=== PATIENT | male | born 1985 | race Caucasian/White ===

== ENCOUNTER 2016-12-17 | Emergency (ER) | payer OTHER | END 2016-12-17 15:27 | disposition home or self-care (01) ==

== ENCOUNTER 2017-01-26 20:27 | Emergency (ER) | payer OTHER | END 2017-01-26 21:33 | disposition home or self-care (01) | DX: R07.89 Other chest pain (principal); F41.9 Anxiety disorder, unspecified; R03.0 Elevated blood-pressure reading, without diagnosis of hypertension ==

== ENCOUNTER 2017-07-27 13:58 | Emergency (ER) | payer OTHER ==
[2017-07-27 14:49] LABS: BILIRUBIN,URINE NEGATIVE (NEGATIVE)
[2017-07-27 14:50] LABS: UA CHARGE (STRIP ONLY) YES; UR CULTURE IF IND NOT INDICATED
--- NOTE | 2017-07-27 15:00 | ED Physician Documentation ---
PD HPI MALE - Stated complaint Stated Complaint: LOWER BACK/MALE - Chief complaint Chief Complaint: Abd Pain - History obtained from History obtained from: Patient - History of Present Illness Timing - onset: Other (For the last week He has had intermittent pain, both testicles but usually the right, it is not severe. He is also had some left low and mid back pain but does get worse with motion and today he had some dysuria, there is no hematuria. He has never had a kidney stone. He is in a monogamous relationship with his and there is no concern for STD on his part.) Review of Systems Constitutional: reports: Reviewed and negative Cardiac: reports: Reviewed and negative Respiratory: reports: Reviewed and negative GI: reports: Nausea. denies: Vomiting : reports: Dysuria. denies: Frequency PD PAST MEDICAL HISTORY - Past Medical History Past Medical History: No - Past Surgical History Past Surgical History: Yes - Present Medications Home Medications: Ambulatory Orders Medication Instructions Recorded Confirmed No Known Home Medications [No 12/17/16 12/17/16 Known Home Medications] - Allergies Allergies/Adverse Reactions: Allergies Allergy/AdvReac Type Severity Reaction Status Date / Time No Known Drug Allergies Allergy Verified 07/27/17 14:08 - Social History Does the pt smoke?: No Smoking Status: Never smoker Does the pt drink ETOH?: No Does the pt have substance abuse?: No - Immunizations Immunizations are current?: Yes PD ED PE NORMAL - Vitals Vital signs reviewed: Yes - General General: Alert and oriented X 3, No acute distress - HEENT HEENT: PERRL, EOMI - Respiratory Respiratory: No respiratory distress, Clear bilaterally - Abdomen Abdomen: Normal bowel sounds, Soft, Non tender - Male Male : Other (Normal descended male testes without tenderness or swelling, normal lie. No hernia.) - Back Back: No CVA TTP, No spinal TTP - Extremities Extremities: No edema, No calf tenderness / cord - Neuro Neuro: Alert and oriented X 3, Normal speech - Psych Psych: Normal mood, Normal affect Results - Vitals Vitals: Vital Signs - 24 hr 07/27/17 14:03 Temperature 36.8 C Heart Rate 70 Respiratory 16 Rate Blood Pressure 143/91 H O2 Saturation 100 Oxygen O2 Source Room air - Labs Labs: Laboratory Tests 07/27/17 07/27/17 07/27/17 14:44 15:22 15:22 WBC 4.6 L RBC 4.85 Hgb 14.5 Hct 42.4 MCV 87.5 MCH 29.9 MCHC 34.1 RDW 12.4 Plt Count 224 MPV 8.4 Neut # 2.3 Lymph # 1.8 Alexander # 0.4 Eos # 0.0 Baso # 0.1 Absolute Nucleated RBC 0.00 Nucleated RBC % 0.0 Sodium 140 Potassium 3.7 Chloride 102 Carbon Dioxide 28 Anion Gap 10.0 BUN 15 Creatinine 0.9 Estimated GFR (MDRD) 98 Glucose 92 Calcium 9.6 Total Bilirubin 1.9 H AST 17 ALT 14 Alkaline Phosphatase 54 Total Protein 8.5 H Albumin 5.1 Globulin 3.4 Albumin/Globulin Ratio 1.5 Lipase 24 Urine Color YELLOW Urine Clarity CLEAR Urine pH 6.0 Ur Specific [place] 1.025 Urine Protein NEGATIVE Urine Glucose (UA) NEGATIVE Urine Ketones NEGATIVE Urine Occult Blood NEGATIVE Urine Nitrite NEGATIVE Urine Bilirubin NEGATIVE Urine Urobilinogen 0.2 (NORMAL) Ur Leukocyte Esterase NEGATIVE Ur Microscopic Review NOT INDICATED Urine Culture Comments NOT INDICATED PD MEDICAL DECISION MAKING - ED course ED course: 32-year-old gentleman with flank and testicular pain, no hematuria, retroperitoneal ultrasound and testicular ultrasounds were negative. He has a normal testicular examination and normal abdominal examination. The cause of his symptoms is unclear, but he will return for any new or worsening symptoms. Departure - Departure Disposition: 01 Home, Self Care Clinical Impression: Testicular pain Back pain Qualifiers: Back pain location: low back pain Chronicity: acute Back pain laterality: bilateral Sciatica presence: without sciatica Qualified Code(s): M54.5 - Low back pain Condition: Good Record reviewed to determine appropriate education?: Yes Instructions: ED Acute Pain [facility] Comments: As discussed, keep an eye on your symptoms and return for any new or worsening symptoms. [place] Your blood pressure was elevated today on check into the emergency department. This does not mean that you have hypertension, it is a common phenomenon to come to the emergency department and have elevated blood pressure. I recommend that she see your primary care physician within the week to have it rechecked when you are feeling better.
[2017-07-27 15:32] LABS: BASOPHILS # (AUTO) 0.1 10^3/uL (0.0-0.1); BASOPHILS % (AUTO) 1.3 %; EOSINOPHILS % (AUTO) 0.8 %; HCT - HEMATOCRIT 42.4 % (42.0-52.0); HGB - HEMOGLOBIN 14.5 g/dL (14.0-18.0); LYMPHOCYTES # (AUTO) 1.8 10^3/uL (1.5-3.5); LYMPHOCYTES % (AUTO) 39.1 %; MEAN CORPUSCULAR HEMOGLOBIN 29.9 pg (27.0-31.0); MEAN CORPUSCULAR HGB CONC 34.1 g/dL (32.0-36.0); MEAN CORPUSCULAR VOLUME 87.5 fL (80.0-94.0); MEAN PLATELET VOLUME 8.4 fL (7.4-11.4); MONOCYTES # (AUTO) 0.4 10^3/uL (0.0-1.0); MONOCYTES % (AUTO) 8.4 %; NEUTROPHILS # (AUTO) 2.3 10^3/uL (1.5-6.6); NEUTROPHILS % (AUTO) 50.4 %; RED BLOOD COUNT 4.85 10^6/uL (4.70-6.10); RED CELL DISTRIBUTION WIDTH 12.4 % (12.0-15.0); UNCORRECTED WHITE BLOOD COUNT 4.6 x10^3/uL; WHITE BLOOD COUNT 4.6 x10^3/uL (4.8-10.8)
[2017-07-27 15:48] LABS: ALBUMIN/GLOBULIN RATIO 1.5 (1.0-2.2); BILIRUBIN,TOTAL 1.9 mg/dL (0.2-1.0); CALCIUM 9.6 mg/dL (8.5-10.3); CREATININE 0.9 mg/dL (0.6-1.2); POTASSIUM 3.7 mmol/L (3.5-5.0); TOTAL PROTEIN 8.5 g/dL (6.7-8.2)
--- NOTE | 2017-07-27 16:54 | Ultrasound Preliminary Report ---
Exam: US Retroperitoneal IMPRESSION: Normal renal ultrasound. [facility] SITE ID: [id number]
--- NOTE | 2017-07-27 16:57 | Ultrasound Report ---
EXAM: RENAL ULTRASOUND EXAM DATE: 07/27/2017 04:29 PM. CLINICAL HISTORY: Testicular and back pain. COMPARISON: None. TECHNIQUE: Real-time scanning was performed with static images obtained. FINDINGS: Right Kidney: 11.8 x 5.0 x 5.5 cm. Normal parenchymal echotexture and color flow. No visualized shado wing stones or hydronephrosis. Left Kidney: 11.0 x 5.3 x 5.7 cm. Normal parenchymal echotexture and color flow. No visualized shadow ing stones or hydronephrosis. Bladder: Bilateral jets seen. Initial bladder volume 73 mL. The bladder was empty post void. IMPRESSION: Normal renal ultrasound. [facility] Referring Provider Line: [phone] SITE ID: [id number]
--- NOTE | 2017-07-27 16:57 | Ultrasound Preliminary Report ---
Exam: US Testicle w/Doppler IMPRESSION: Normal scrotal ultrasound. [facility] SITE ID: [id number]
--- NOTE | 2017-07-27 16:59 | Ultrasound Report ---
EXAM: SCROTAL ULTRASOUND EXAM DATE: 07/27/2017 04:44 PM. CLINICAL HISTORY: Testicular and back pain. COMPARISON: None. TECHNIQUE: Real-time scanning was performed with static images obtained. Both color-flow and Doppler spectral analysis were utilized. FINDINGS: Right: Testis: 4.5 x 2.1 x 3.1 cm, volume 15.3 cc. Normal echotexture. No mass or calcification. Arterial an d venous blood flow are present. No hyperemia. Epididymis: The epididymal head measures 1.1 x 0.4 x 1.0 cm. Normal echotexture. No hyperemia. Hydrocele: None. Varicocele: None. Left: Testis: 4.7 x 2.5 x 2.7 cm, volume 16.6 cc. Normal echotexture. No mass or calcification. Arterial an d venous blood flow are present. No hyperemia. Epididymis: The epididymal head measures 1.0 x 0.6 x 1.0 cm. Normal echotexture. No hyperemia. Hydrocele: None. Varicocele: None. IMPRESSION: Normal scrotal ultrasound. [facility] Referring Provider Line: [phone] SITE ID: [id number]
[2017-07-27 17:52] VITALS: BP 134/91
== END 2017-07-27 17:49 | disposition home or self-care (01) ==
LOC: ED 13:58
DX: N50.811 Right testicular pain (principal); N50.812 Left testicular pain; M54.5 Low back pain; R03.0 Elevated blood-pressure reading, without diagnosis of hypertension
CPT/HCPCS: 36415; 76770; 76870; 80053; 81001; 81003; 83690; 85025; 87086; 87491; 87591; 93975; 99283